=== PATIENT | male | born 1975 | race Caucasian/White ===

== ENCOUNTER 2023-06-11 10:32 | Observation (INO) | payer SELFPAY ==
[2023-06-11] VITALS (16 sets, daily range): BP systolic 102–188; BP diastolic 61–113; PULSE 51–103; RESP 16–18; TEMP 36.4–37.4; O2SAT 88–99; BMI 29.7
--- NOTE | 2023-06-11 10:41 | W.ED.ABDPA2 ---
HPI - Abdominal Pain General: Chief Complaint: Abdominal Pain Stated Complaint: abd pain, N/V Time Seen by Provider: 06/11/23 10:41 History of Present Illness: 47-year-old male presents to the emergency department with complaints of right lower and right upper quadrant abdominal pain. He states this occurred starting yesterday and got slightly better and then occurred again at 3:00 in the morning. He states he did have significant nausea and 9 out of 10 sharp pain in the to the right upper and right lower quadrant. He states he has felt chilled and that he thought he might of had a fever but he did not check it. He denies hematemesis or hematochezia. He states that pushing on the abdomen makes the pain worse and bending over makes the pain worse. He states that Nothing seems to make the pain better. Associated Symptoms: Reports chills, fever(s) and nausea Review of Systems General: Reports: 10 or more systems reviewed and unremarkable except in HPI and below Const: Reports: fever(s) and chills GI: Reports: abdominal pain and nausea Physical Exam Narrative: EXAM NARRATIVE: Constitutional: the patient appears well nourished and of normal development. Vital signs as documented. No acute distress at present. Alert and oriented-to person, place, time and situation. Head, eyes, ears, nose, mouth, throat: Normocephalic, atraumatic. Pupils-equal, round, reactive to light. No scleral icterus. Normal-appearing external ears. Normal appearing nasal turbinates, no drainage. No obvious oral lesions, posterior oropharynx without erythema or exudates. Neck: Supple, trachea is midline, no lymphadenopathy, no jugular venous distension, thyromegaly, or carotid bruits. Carotid upstrokes are brisk bilaterally. Lungs: clear to auscultation to all lung kessler. Symmetrical rise and fall of chest, no obvious signs of increased work of breathing at present. Cardiac: Regular rate and rhythm, positive S1, S2. No murmurs, rubs or gallops that I can appreciate Abdomen: Soft, Tender to palpation to the right lower and right upper quadrant, normal active bowel sounds to all quadrants. No palpable masses, no organomegaly and abdominal bruits. Extremities: 2+ pulses in the upper extremities that are equal bilaterally, 2+ pulses in the lower extremities that are equal bilaterally. Non-edematous. Moves all extremities well, sensation to all extremities are noted. Skin: Warm, dry, intact. Course Vital Signs: Vital signs: Vital Signs Temperature 98.5 F 06/14/23 11:42 Pulse Rate 85 06/14/23 11:42 Respiratory Rate 17 06/14/23 11:42 Blood Pressure 170/99 06/14/23 11:42 Pulse Oximetry 92 06/14/23 11:42 Oxygen Delivery Me thod Room Air 06/14/23 08:00 Oxygen Flow Rate 2 06/11/23 22:49 MDM - Abdominal Pain Medical Decision Making Physical exam completed and documented, laboratory examination to include a CBC, CMP, lipase as well as a CT scan of the abdomen pelvis I suspect he most likely has an acute appendicitis but the differential diagnosis does include gastroenteritis colitis, constipation excessive flatus, and cholecystitis. Lab Data I reviewed the patient's lab results. 06/14/23 04:46 06/14/23 04:46 Labs/Radiology: Laboratory Results WBC 13.95 10^3/uL (3.29-11.43) H 06/11/23 10:53 RBC 5.24 10^6/uL (3.85-5.65) 06/11/23 10:53 Hgb 16.10 g/dL (11.27-16.99) 06/11/23 10:53 Hct 45.8 % (37-53) 06/11/23 10:53 MCV 87.4 fl (82-101) 06/11/23 10:53 MCH 30.7 pg (27-33) 06/11/23 10:53 MCHC 35.2 g/dL (30-55) 06/11/23 10:53 RDW 12.3 % (12.1-15.1) 06/11/23 10:53 Plt Count 258 10^3/cmm (157-399) 06/11/23 10:53 MPV 10.1 fL (7.4-10.4) 06/11/23 10:53 Neut % (Auto) 84.7 % 06/11/23 10:53 Lymph % (Auto) 10.9 % 06/11/23 10:53 [place] % (Auto) 3.8 % 06/11/23 10:53 Eos % (Auto) 0.1 % 06/11/23 10:53 Baso % (Auto) 0.3 % 06/11/23 10:53 Neut # (Auto) 11.82 10^3/uL (1.8-7.7) H 06/11/23 10:53 Lymph # (Auto) 1.5 10^3/uL (0.8-4.8) 06/11/23 10:53 [place] # (Auto) 0.5 10^3/uL (0.2-0.9) 06/11/23 10:53 Eos # (Auto) 0.0 10^3/uL (0.0-0.8) 06/11/23 10:53 Baso # (Auto) 0.0 10^3/uL (0.0-0.1) 06/11/23 10:53 Nucleated RBC % (auto) 0 % 06/11/23 10:53 Nucleated RBCs # 0.0 /100WBC 06/11/23 10:53 Sodium 132 mmol/L (136-145) L 06/11/23 10:53 Potassium 3.7 mmol/L (3.5-5.1) 06/11/23 10:53 Chloride 97 mmol/L (98-107) L 06/11/23 10:53 Carbon Dioxide 22 mmol/L (22-29) 06/11/23 10:53 Anion Gap 16.7 (5-19) 06/11/23 10:53 BUN 8 mg/dL (6-20) 06/11/23 10:53 Creatinine 0.8 mg/dL (0.7-1.2) 06/11/23 10:53 GFR Calculation 104.5 mL/min (90-130) 06/11/23 10:53 Glucose 148 mg/dL (65-115) H 06/11/23 10:53 Calculated Osmolality 275 mOsm/kg (285-295) L 06/11/23 10:53 Calcium 9.8 mg/dL (8.5-10.5) 06/11/23 10:53 Total Bilirubin 0.5 mg/dL (0.15-1.2) 06/11/23 10:53 AST 25 U/L (0-40) 06/11/23 10:53 ALT 37 U/L (0-41) 06/11/23 10:53 Alkaline Phosphatase 79 U/L (40-130) 06/11/23 10:53 Troponin T Baseline 7 ng/L (0-15) 06/11/23 10:56 Troponin T 120 Minute 7.34 ng/L (0-15) 06/11/23 13:00 Delta Troponin T 0.34 ABS# (0-10) 06/11/23 13:00 Total Protein 7.6 g/dL (6.6-8.7) 06/11/23 10:53 Albumin 4.6 g/dL (3.5-5.2) 06/11/23 10:53 Globulin 3.0 g/dL (1.3-4.6) 06/11/23 10:53 Lipase 22 U/L (13-60) 06/11/23 10:53 Urine Color Yellow (Yellow) 06/11/23 11:31 Urine Appearance Clear (CLEAR) 06/11/23 11:31 Urine pH 9 (5-7) H 06/11/23 11:31 Ur Specific [place] 1.010 (1.005-1.030) 06/11/23 11:31 Urine Protein Neg (Negative) 06/11/23 11:31 Urine Glucose (UA) Norm (Normal) 06/11/23 11:31 Urine Ketones 1+ (Negative) H 06/11/23 11:31 Urine Blood Neg (Negative) 06/11/23 11:31 Urine Nitrate Negative (Negative) 06/11/23 11:31 Urine Bilirubin Neg (Negative) 06/11/23 11:31 Prot Sulfosalicylic Acd Negative (Negative) 06/11/23 11:31 Urine Urobilinogen Norm mg/dL (Negative) 06/11/23 11:31 Ur Leukocyte Esterase Negative (Negative) 06/11/23 11:31 Urine Opiates Screen Negative ng/mL (Negative) 06/11/23 11:31 Ur Barbiturates Screen Negative ng/mL (Negative) 06/11/23 11:31 Ur Phencyclidine Scrn Negative ng/mL (Negative) 06/11/23 11:31 Ur Amphetamines Screen Negative ng/mL (Negative) 06/11/23 11:31 U Benzodiazepines Scrn Negative ng/mL (Negative) 06/11/23 11:31 Urine Cocaine Screen Negative ng/mL (Negative) 06/11/23 11:31 U Marijuana (THC) Screen Negative ng/mL (Negative) 06/11/23 11:31 All radiology interpretation(s) finalized by discharge Discharge Plan Discharge Patient Disposition: Admitted As Inpatient Admit Provider: Tee Dinero Clinical Impression: Acute appendicitis, Abdominal pain Condition: Stable Discharge Orders: Discharge Order (Routine); Ordered 06/14/23 Ordered By: Tee Dinero Discharge Diet: Advance as tolerated Discharge Activity: Resume usual activity Coding Level of Care Code ED Clubhouse Manager for Negro Whyte
--- NOTE | 2023-06-11 10:42 | ECG_ITS ---
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 Measurements Intervals [place] Rate: 48 P: 13 IA: 136 QRS: 27 QRSD: 122 T: -25 QT: 446 QTc: 398 Interpretive Statements SINUS BRADYCARDIA NONSPECIFIC T-WAVE ABNORMALITY No previous ECG available for comparison Abnormal EKG Electronically Signed On 06-12-2023 13:20:29 DOT COMPLIANCE SPECIALIST by Alfred Wright M.D. [id number]
[2023-06-11] MEDS: ondansetron 2 mg/ML SDV 2 mL 4 MG IVP ×2 (10:57→22:54)
[2023-06-11 11:00] LABS: Basophils % 0.3 %; Eosinophils % 0.1 %; Hematocrit 45.8 % (37-53); Lymphocytes # 1.5 10^3/uL (0.8-4.8); Lymphocytes % 10.9 %; Mean Corpuscular HGB Conc 35.2 g/dL (30-55); Mean Corpuscular Hemoglobin 30.7 pg (27-33); Mean Corpuscular Volume 87.4 fl (82-101); Mean Platelet Volume 10.1 fL (7.4-10.4); Monocytes # 0.5 10^3/uL (0.2-0.9); Monocytes % 3.8 %; Neutrophils # 11.82 10^3/uL (1.8-7.7); Neutrophils % 84.7 %; Nucleated Red Blood Cells % 0 %; Platelet Count 258 10^3/cmm (157-399); Red Blood Count 5.24 10^6/uL (3.85-5.65); Red Cell Distribution Width 12.3 % (12.1-15.1); White Blood Count 13.95 10^3/uL (3.29-11.43)
--- NOTE | 2023-06-11 11:05 | PC.PHAR ---
PT STS HE ONLY TAKES LISINOPRIL 20MG DAILY- DID NOT ENTER IN HOME MEDICATIONS BECAUSE I WAS UNABLE TO VERIFY WHERE PT FILLED THE SCRIPT- CALLED [facility] IN [place] AND THEY SHOW LAST FILLED 2021 FOR LISINOPRIL 40MG DAILY
[2023-06-11 11:23] LABS: Alanine Aminotransferase 37 U/L (0-41); Albumin Level 4.6 g/dL (3.5-5.2); Alkaline Phosphatase 79 U/L (40-130); Anion Gap 16.7 (5-19); Aspartate Amino Transferase 25 U/L (0-40); Blood Urea Nitrogen 8 mg/dL (6-20); Calcium 9.8 mg/dL (8.5-10.5); Carbon Dioxide 22 mmol/L (22-29); Chloride 97 mmol/L (98-107); Glomerular Filtration Rate 104.5 mL/min (90-130); Glucose 148 mg/dL (65-115); Lipase 22 U/L (13-60); Osmolality Calculated 275 mOsm/kg (285-295); Potassium 3.7 mmol/L (3.5-5.1); Sodium 132 mmol/L (136-145); Total Bilirubin 0.5 mg/dL (0.15-1.2); Total Protein 7.6 g/dL (6.6-8.7)
[2023-06-11 11:43] LABS: Add Urine Microscopic? NO; Charge for UA Resulting for Rev
[2023-06-11] MEDS: lidocaine 2% viscous 15 ML, aluminum-mag hydrox-simethicon 30 ML, sucralfate oral liq 1 GM PO (11:50)
[2023-06-11 11:52] LABS: Amphetamines Screen Urine Negative (Negative); Barbiturates Screen Urine Negative (Negative); Benzodiazepines Screen Urine Negative (Negative); Cocaine Screen Urine Negative (Negative); Opiate Screen Urine Negative (Negative); PCP Screen Urine Negative (Negative); THC Screen Urine Negative (Negative)
[2023-06-11 12:03] LABS: Bilirubin Urine Neg (Negative); Blood Urine Neg (Negative); Glucose Urine UA Norm (Normal); Ketones Urine 1+ (Negative); Leukocyte Esterase Urine Negative (Negative); Nitrate Urine Negative (Negative); Protein Urine Neg (Negative); Sulfosalicylic Acid Urine Negative (Negative); Urine Appearance Clear (CLEAR); Urine Color Yellow (Yellow); Urobilinogen Urine Norm (Negative); pH Urine 9 (5-7)
--- NOTE | 2023-06-11 12:23 | CT_ITS ---
WS: [id number] CT ABDOMEN AND PELVIS WITH CONTRAST HISTORY: Abdominal pain TECHNIQUE: Imaging performed of the abdomen and pelvis with IV contrast. Single phase imaging of the abdomen. Coronal and sagittal reformats are submitted. All CT scans at [facility] use at [address] one of these dose optimization techniques: automated exposure control; mA and/or kV adjustment per patient size (includes targeted exams where dose is matched to clinical indication); or iterative re construction. IV CONTRAST: Omnipaque 350; 100 mL IV. Oral contrast: No DLP: 2218.73 mGy.cm COMPARISON: None available. Lower thorax: Benign granuloma at the lingula. No pneumonia. Heart is normal size. No hiatal hernia. Liver/biliary system: Diffuse hepatic steatosis. No mass. Gallbladder: Normal. No gallstones or wall thickening. No pericholecystic fluid. Pancreas: Normal size pancreas and pancreatic duct. No adjacent inflammation. Spleen: Normal size spleen. No mass or infarct. Adrenal glands: Normal. Right kidney: Normal. Left kidney: Normal. Aorta: Normal. Lymphadenopathy: None. Free fluid: None. GI tract: No obstruction. The appendix is dilated slightly measuring 9.8 mm. There is mild enhancemen t and very minimal inflammation surrounding the appendix. Abdominal wall: Unremarkable abdominal wall. No hernia. Pelvis: No free fluid or adenopathy within the pelvis. Normal size prostate with central calcificatio ns. Bones: Unremarkable. IMPRESSION: 1. Mildly dilated appendix with wall enhancement. No abscess or perforation. Findings are suspicious for acute mild appendicitis. 2. No GI tract obstruction or free air. 3. Hepatic steatosis.
[2023-06-11] MEDS: cloNIDine 0.1 mg Tablet PO (12:47)
[2023-06-11] MEDS: iohexol 350 mg/mL 500 mL Btl (per mL) IV (12:47)
[2023-06-11 12:50] LABS: Troponin(5th) Baseline 7 ng/L (0-15)
[2023-06-11 13:40] LABS: Troponin 5 2HR 7.34 ng/L (0-15); Troponin 5 2HR Delta 0.34 ABS# (0-10)
--- NOTE | 2023-06-11 14:18 | ECG_ITS ---
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 Measurements Intervals [place] Rate: 51 P: 45 SC: 175 QRS: 51 QRSD: 114 T: -18 QT: 442 QTc: 407 Interpretive Statements SINUS BRADYCARDIA WITH SINUS ARRHYTHMIA NONSPECIFIC T-WAVE ABNORMALITY Compared to ECG 06/11/2023 10:42:34 No significant changes Electronically Signed On 06-12-2023 13:33:57 RN HEMODIALYSIS by Alfred Wright M.D. [id number]
[2023-06-11] MEDS: hyDRALAzine 20 mg/mL INJ 1 mL 10 MG IVP (14:37)
[2023-06-11] MEDS: cefepime 2,000 MG in sodium chloride 0.9% (plus) 50 ML 100 MG IV (14:37)
[2023-06-11] MEDS: fentaNYL 50 mcg/mL INJ 2mL IVP (15:07)
--- NOTE | 2023-06-11 16:06 | P.HP_ITS ---
Providers/Chief Complaint Chief Complaint: abd pain, N/V History of Present Illness Escobar Yeh is a 47 year old male who presents to the hospital with a less than 1 day history of right lower quadrant abdominal pain nausea and emesis. He reports chills but denies any recorded fever. Denies any hematemesis. Denies any diarrhea, constipation, hematochezia and/or melena. Palpation makes pain worse. Not makes pain better. The pain does not radiate. CT the abdomen pelvis shows early acute appendicitis. Review of Systems General: Reports: 10 or more systems reviewed and unremarkable except in HPI and below Medications/Allergies Home Medications Medication Instructions Recorded Confirmed Last Taken Type No Known Home Medications 06/11/23 06/11/23 Unknown History Allergies Allergy/AdvReac Type Severity Reaction Status Date / Time No Known Allergies Allergy Verified 06/11/23 10:48 Vitals/I&O/Wt Last Vital Signs Temp 98.3 F 06/11/23 10:44 Pulse 63 06/11/23 15:51 Resp 16 06/11/23 15:51 BP 169/113 06/11/23 15:51 Pulse Ox 91 06/11/23 15:51 O2 Del Method Room Air 06/11/23 15:51 Weight last 48 hrs Weight 225 lb Physical Exam Narrative: General : Patient is well developed , no acute distress, oriented x3 Head : Normal cephalic, a-traumatic. Ears : Pinnae and external canal are normal. Hearing is normal. Eyes : PERRLA, Sclera and injection are normal. No conjunctival discharge. Nose : Mucous membranes are without erythema. Throat : buccal mucosa is normal, gums are without significant recession or hypertrophy. Lungs : Equal chest rise bilaterally, no use of accessory muscles, trachea is midline. Cor : Rate and rhythm are normal. Abdomen : Soft, ND, tender to palpation right lower quadrant, negative Rovsing' s, no g/r/m Extremities : No edema, no cyanosis or clubbing, dorsalis pedis pulses are present bilaterally, non-tender to palpation of calves. Upper extremities are normal bilaterally. Back : non-tender to palpation, no CVA tenderness. Neuro : CN II - XII intact, Upper and lower extremities have equal and full strength Data 06/11/23 10:53 06/11/23 10:53 A&P Assessment and plan (1) Acute appendicitis: Plan Laparoscopic Appendectomy The risks and benefits of the procedure, including but not limited to, bleeding, infection, scar, numbness, pain, damage to surrounding structures, conversion to an open procedure, were explained to the patient. He is understanding of the risks and wishes to proceed. Attestations Medical Necessity Statement*: Medical necessity will be determined intraoperatively Coding Level of Care Code 39478 Diagnoses Acute appendicitis K35.80
[2023-06-11] MEDS: metroNIDAZOLE IV 500 MG/100 ML PREMIX 100 MG IV (16:11)
--- NOTE | 2023-06-11 16:34 | ANES.PREANE2 ---
Pre-Anesthetic Assessment Height/Weight: Height 1.85 m Weight 102.058 kg Temp Pulse Resp BP Pulse Ox O2 Del Method 98.3 F 63 16 169/113 91 Room Air 06/11/23 10:44 06/11/23 15:51 06/11/23 15:51 06/11/23 15:51 06/11/23 15:51 06/11/23 15:51 Operation Date: 06/11/23 15:30 Proposed Procedures p Laparoscopic Appendectomy(Not Applicable) - Tee Dinero DO Familial anesthetic complications: none Was Beta Gabo taken within 24 hours: N/A Was Clonidine taken within 24 hours: N/A Social No alcohol and No tobacco Exam alert, oriented x 3, clear to auscultation bilaterally and regular rate & rhythm Airway Submandibular: within normal limits Cervical ROM: within normal limits Mallampati: Class II Dentition: chipped (multiple caries) CV/HEM Hypertension Metabolic Obese Anesthetic Plan ASA status: 2E Anesthesia: General (RSI) Medications/Allergies Home Medications Medication Instructions Recorded Confirmed Last Taken Type No Known Home Medications 06/11/23 06/11/23 Unknown History Allergies Allergy/AdvReac Type Severity Reaction Status Date / Time No Known Allergies Allergy Verified 06/11/23 10:48 Current Medications Generic Name Dose Route Start Last Admin Trade Name Freq PRN Reason Stop Dose Admin Metronidazole 500 mg in 100 mls @ 100 mls/hr 06/11/23 16:00 06/11/23 16:11 Flagyl Iv IV 06/11/23 16:59 100 mls/hr ONCE ONE Administration Data Anesthesia 06/11/23 10:53 06/11/23 10:53 Short CBC 06/11/23 Range/Units 10:53 WBC 13.95 H (3.29-11.43) 10^3/uL Hgb 16.10 (11.27-16.99) g/dL Hct 45.8 (37-53) % MCV 87.4 (82-101) fl Plt Count 258 (157-399) 10^3/cmm Neut % (Auto) 84.7 % Neut # (Auto) 11.82 H (1.8-7.7) 10^3/uL BMP 06/11/23 10:53 Sodium 132 L Potassium 3.7 Chloride 97 L Carbon Dioxide 22 BUN 8 Creatinine 0.8 Glucose 148 H Calcium 9.8 Cardiac Enzymes 06/11/23 06/11/23 Range/Units 10:56 13:00 Troponin T Baseline 7 (0-15) ng/L Troponin T 120 Minute 7.34 (0-15) ng/L Delta Troponin T 0.34 (0-10) ABS# Liver Function 06/11/23 Range/Units 10:53 Total Bilirubin 0.5 (0.15-1.2) mg/dL AST 25 (0-40) U/L ALT 37 (0-41) U/L Alkaline Phosphatase 79 (40-130) U/L Albumin 4.6 (3.5-5.2) g/dL Urine 06/11/23 Range/Units 11:31 Urine Color Yellow (Yellow) Urine Appearance Clear (CLEAR) Urine pH 9 H (5-7) Ur Specific [place] 1.010 (1.005-1.030) Urine Protein Neg (Negative) Urine Glucose (UA) Norm (Normal) Urine Ketones 1+ H (Negative) Urine Nitrate Negative (Negative) Urine Bilirubin Neg (Negative) Ur Leukocyte Esterase Negative (Negative) Cardiac Studies: No Data to Display
[2023-06-11] MEDS: lidocaine-epi 2% 20 mL INJ INJECTION (16:40)
--- NOTE | 2023-06-11 17:14 | P.OP_ITS ---
Operative Report Date of procedure: June 11, 2023 Pre-op diagnosis: Acute appendicitis Post-op diagnosis: same Procedure done: Laparoscopic appendectomy Implants: 19 Cymraes Bernardo drain Specimens removed/disposition: Appendix Surgeon: Tee Dinero DO Anesthesia: General Estimated blood loss (mL): 5 Complications: None apparent Brief History: This very pleasant 47-year-old gentleman who presented to the hospital with abdominal pain. He was diagnosed with acute appendicitis. Laparoscopic appendectomy was indicated. The risk benefits were explained and documented. Procedure: Patient was wheeled into the operative room and placed on the OR table in a sup ine position. Abdomen was inspected prepped and draped in usual sterile fashion. Time-out was performed and all present were in agreement. A 15 blade scalp was used to make a stab incision in the left upper quadrant and intra- abdominal insufflation was achieved using a Veress needle. After localizing the tissue incisions were made and a 12 millimeter trocar was placed into the umbilicus as well as a 5mm in the right lower quadrant and a 5 mm in the left lower quadrant . The appendix was identified and was mildly inflamed but extremely large and dilated. I used the LigaSure to ligate the mesoappendix at the base. I then used 2 PDS endo-loops to snare the base of the appendix. I then used the LigaSure to ligate the appendix distally. Unfortunately a significant amount of stool leaked out of the stool-filled appendix. The appendix was removed from the abdomen using an Endo-Catch bag through the umbilical incision. I spot irrigated and suctioned at the site of contamination. I examined the abdomen and no further pathology was identified. Hemostasis was noted. A 19 Cymraes Bernardo drain was placed through the right lower quadrant going to the pelvis and right paracolic gutter. Drain was sewn in place with 3-0 silk. I then closed the umbilical site with a Colby-Aidee and 0 Vicryl suture in a figure of 8 fashion. All ports removed. Skin was washed and dried. Incisions were closed with 3-0 nylon in a simple interrupted fashion. Sterile bandages were applied. Patient tolerated the procedure well.
--- NOTE | 2023-06-11 17:34 | ANE.PACU2 ---
Inpatient post-anesthesia follow up: Airway intact: Yes Vital signs: Temperature 98.2 F Pulse Rate 80 Respiratory Rate 16 Blood Pressure 102/65 Pulse Oximetry 98 Oxygen Delivery Me thod Simple Mask Oxygen Flow Rate 8 Fraction of Inspir ed Oxygen Hydration adequate: Yes Nausea and vomiting: No Pain level: 3 Mental status: Baseline
[2023-06-11] MEDS: pantoprazole 40 mg SDV IVP (18:53)
[2023-06-11] MEDS: heparin 5,000 unit/mL INJ 1 mL 5000 UNIT SUBCUT (18:54)
[2023-06-11] MEDS: ketorolac 30 mg/mL INJ IVP ×2 (18:56→22:50)
[2023-06-11] MEDS: dextrose 5%-sod chloride 0.45% 1,000 ML 125 ML IV (18:59)
[2023-06-11] MEDS: HYDROcodone-acetaminophen 7.5-325 mg Tablet 1 TAB PO (20:19)
[2023-06-11] MEDS: piperacillin-tazobactam 3.375 GM in sodium chloride 0.9% (plus) 50 ML IV (20:20)
[2023-06-12] VITALS (7 sets, daily range): BP systolic 120–157; BP diastolic 60–93; PULSE 78–96; RESP 16–20; TEMP 36.7–37; O2SAT 92–93
[2023-06-12] MEDS: HYDROcodone-acetaminophen 7.5-325 mg Tablet 1 TAB PO ×5 (00:24→21:47)
[2023-06-12] MEDS: dextrose 5%-sod chloride 0.45% 1,000 ML 125 ML IV ×2 (00:25→21:46)
[2023-06-12 03:07] LABS: Basophils % 0.2 %; Eosinophils % 0.1 %; Hematocrit 42.5 % (37-53); Lymphocytes % 4.7 %; Mean Corpuscular HGB Conc 34.6 g/dL (30-55); Mean Corpuscular Hemoglobin 30.8 pg (27-33); Mean Corpuscular Volume 89.1 fl (82-101); Mean Platelet Volume 10.4 fL (7.4-10.4); Monocytes # 1.4 10^3/uL (0.2-0.9); Monocytes % 6.2 %; Neutrophils # 19.13 10^3/uL (1.8-7.7); Neutrophils % 88.2 %; Nucleated Red Blood Cells % 0 %; Platelet Count 225 10^3/cmm (157-399); Red Blood Count 4.77 10^6/uL (3.85-5.65); Red Cell Distribution Width 12.8 % (12.1-15.1); White Blood Count 21.69 10^3/uL (3.29-11.43)
[2023-06-12 03:32] LABS: Anion Gap 16.1 (5-19); Blood Urea Nitrogen 13 mg/dL (6-20); Calcium 8.9 mg/dL (8.5-10.5); Carbon Dioxide 23 mmol/L (22-29); Chloride 99 mmol/L (98-107); Glomerular Filtration Rate 65.5 mL/min (90-130); Glucose 163 mg/dL (65-115); Magnesium 1.5 mg/dL (1.7-2.3); Osmolality Calculated 282 mOsm/kg (285-295); Potassium 4.1 mmol/L (3.5-5.1); Sodium 134 mmol/L (136-145)
[2023-06-12] MEDS: piperacillin-tazobactam 3.375 GM in sodium chloride 0.9% (plus) 50 ML IV ×3 (04:31→21:46)
[2023-06-12] MEDS: ketorolac 30 mg/mL INJ IVP ×4 (04:32→23:59)
[2023-06-12] MEDS: heparin 5,000 unit/mL INJ 1 mL 5000 UNIT SUBCUT ×2 (04:32→18:21)
[2023-06-12] MEDS: dextrose 5%-sod chloride 0.45% 1,000 ML 1125 ML IV (10:34)
--- NOTE | 2023-06-12 11:03 | P.PN_ITS ---
Subjective Subjective: Patient seen and examined. Pain controlled and tolerating diet. Vitals/I&O/Wt Last Vital Signs Temp 98.5 F 06/12/23 09:08 Pulse 80 06/12/23 09:08 Resp 20 H 06/12/23 09:08 BP 128/74 06/12/23 09:08 Pulse Ox 92 06/12/23 09:08 O2 Del Method Room Air 06/12/23 09:08 O2 Flow Rate 2 06/11/23 22:49 06/11/23 06/12/23 06/12/23 22:59 06:59 14:59 Intake Total 100 / 100 729.167 / 314.490 0400 / 1410 Output Total 245 / 245 760 / 1005 Balance -145 / -145 -30.833 / -944.460 7626 / 1410 Weight last 48 hrs Weight 255 lb 9.6 oz Weight 255 lb 9.6 oz Weight 225 lb Physical Exam Narrative: General: No acute distress, awake alert and oriented x 3 Abdomen: Soft, nondistended, appropriately tender Incisions intact without erythema or exudate Drain purulent Data 06/12/23 03:03 06/12/23 03:03 A&P Assessment and plan (1) Acute appendicitis: Plan Status post laparoscopic appendectomy WBCs are trending up and drain is purulent. I will keep him at least 1 more day for IV antibiotics Possible DC tomorrow Attestations Medical Necessity Statement*: Patient requires at least 1 more night in the hospital for IV antibiotics after ultrasound appendectomy for acute appendicitis Coding Level of Care Code Acute Code for [facility] Diagnoses Acute appendicitis K35.80
[2023-06-12] MEDS: magnesium sulfate premix 4 GM/100 ML PREMIX IV (12:26)
[2023-06-12] MEDS: pantoprazole 40 mg SDV IVP (18:09)
[2023-06-13] VITALS: BP 133/86; PULSE 85; RESP 17; TEMP 36.8; O2SAT 93
[2023-06-13] MEDS: HYDROcodone-acetaminophen 7.5-325 mg Tablet 1 TAB PO ×3 (05:36→21:13)
[2023-06-13 06:00] VITALS: BP 130/60; PULSE 76; RESP 18; TEMP 36.4; O2SAT 96; BMI 33.7
[2023-06-13] MEDS: ketorolac 30 mg/mL INJ IVP ×3 (06:40→17:34)
[2023-06-13] MEDS: piperacillin-tazobactam 3.375 GM in sodium chloride 0.9% (plus) 50 ML IV ×3 (06:40→21:15)
[2023-06-13] MEDS: heparin 5,000 unit/mL INJ 1 mL 5000 UNIT SUBCUT ×2 (06:41→17:34)
[2023-06-13 07:36] VITALS: BP 150/98; PULSE 93; RESP 18; TEMP 36.7; O2SAT 93
[2023-06-13] MEDS: dextrose 5%-sod chloride 0.45% 1,000 ML 125 ML IV ×2 (09:24→17:45)
[2023-06-13 10:02] LABS: Basophils % 0.2 %; Eosinophils % 0.2 %; Hematocrit 39.5 % (37-53); Lymphocytes % 8.4 %; Mean Corpuscular HGB Conc 33.7 g/dL (30-55); Mean Corpuscular Hemoglobin 30.6 pg (27-33); Mean Platelet Volume 10.1 fL (7.4-10.4); Monocytes % 7.8 %; Neutrophils # 10.16 10^3/uL (1.8-7.7); Neutrophils % 83.1 %; Nucleated Red Blood Cells % 0 %; Platelet Count 202 10^3/cmm (157-399); Red Blood Count 4.34 10^6/uL (3.85-5.65); Red Cell Distribution Width 13.2 % (12.1-15.1); White Blood Count 12.23 10^3/uL (3.29-11.43)
[2023-06-13 10:23] LABS: Blood Urea Nitrogen 14 mg/dL (6-20); Calcium 8.6 mg/dL (8.5-10.5); Carbon Dioxide 21 mmol/L (22-29); Chloride 104 mmol/L (98-107); Glomerular Filtration Rate 80.8 mL/min (90-130); Glucose 141 mg/dL (65-115); Magnesium 2.3 mg/dL (1.7-2.3); Osmolality Calculated 279 mOsm/kg (285-295); Sodium 133 mmol/L (136-145)
--- NOTE | 2023-06-13 12:16 | PM.PN ---
Subjective Subjective: Patient seen and examined. Pain controlled and tolerating diet. Still no BM Vitals/I&O/Wt Last Vital Signs Temp 98.0 F 06/13/23 07:36 Pulse 93 06/13/23 07:36 Resp 18 06/13/23 07:36 BP 150/98 06/13/23 07:36 Pulse Ox 93 06/13/23 07:36 O2 Del Method Room Air 06/13/23 07:36 O2 Flow Rate 2 06/11/23 22:49 06/12/23 06/13/23 06/13/23 22:59 06:59 14:59 Intake Total 1387.5 / 3450.0 1645.833 / 5095.833 170 / 170 Output Total 50 / 50 15 / 65 Balance 1337.5 / 3400.0 1630.833 / 5030.833 170 / 170 Weight last 48 hrs Weight 255 lb 9.6 oz Weight 255 lb 9.6 oz Weight 255 lb 9.6 oz Physical Exam Narrative: General: No acute distress, awake alert and oriented x 3 Abdomen: Soft, nondistended, appropriately tender Incisions intact without erythema or exudate Drain purulent Data 06/13/23 09:54 06/13/23 09:54 A&P Assessment and plan (1) Acute appendicitis: Plan Status post laparoscopic appendectomy WBCs remain elevated and and drain is purulent. I will keep him at least 1 more day for IV antibiotics Possible DC tomorrow Attestations Medical Necessity Statement*: Patient requires at least 1 more night in the hospital for IV antibiotics after laparoscopic appendectomy Coding Level of Care Code Acute Code for [facility] Diagnoses Acute appendicitis K35.80
[2023-06-13 12:17] VITALS: BP 154/88; PULSE 83; RESP 18; TEMP 36.6; O2SAT 93
[2023-06-13 15:33] VITALS: BP 160/97; PULSE 103; RESP 18; TEMP 36.8; O2SAT 92
[2023-06-13] MEDS: pantoprazole 40 mg SDV IVP (17:34)
[2023-06-13 20:00] VITALS: BP 151/94; PULSE 85; RESP 18; TEMP 36.8; O2SAT 93
[2023-06-14] VITALS: BP 152/90; PULSE 85; RESP 16; TEMP 37.2; O2SAT 94
[2023-06-14] MEDS: ketorolac 30 mg/mL INJ IVP ×2 (00:16→05:51)
[2023-06-14] MEDS: dextrose 5%-sod chloride 0.45% 1,000 ML 125 ML IV (01:49)
[2023-06-14 04:12] VITALS: BP 161/98; PULSE 85; RESP 16; TEMP 37.1; O2SAT 95
[2023-06-14] MEDS: HYDROcodone-acetaminophen 7.5-325 mg Tablet 1 TAB PO ×2 (04:18→11:23)
[2023-06-14] MEDS: piperacillin-tazobactam 3.375 GM in sodium chloride 0.9% (plus) 50 ML IV (04:19)
[2023-06-14 05:03] LABS: Basophils # 0.1 10^3/uL (0.0-0.1); Basophils % 0.5 %; Eosinophils # 0.1 10^3/uL (0.0-0.8); Eosinophils % 0.8 %; Hematocrit 41.9 % (37-53); Lymphocytes # 1.5 10^3/uL (0.8-4.8); Lymphocytes % 13.3 %; Mean Corpuscular HGB Conc 33.2 g/dL (30-55); Mean Corpuscular Hemoglobin 30.5 pg (27-33); Mean Corpuscular Volume 92.1 fl (82-101); Mean Platelet Volume 10.5 fL (7.4-10.4); Neutrophils # 8.61 10^3/uL (1.8-7.7); Nucleated Red Blood Cells % 0 %; Platelet Count 218 10^3/cmm (157-399); Red Blood Count 4.55 10^6/uL (3.85-5.65); Red Cell Distribution Width 13.2 % (12.1-15.1); White Blood Count 11.32 10^3/uL (3.29-11.43)
[2023-06-14 05:22] LABS: Anion Gap 13.8 (5-19); Blood Urea Nitrogen 10 mg/dL (6-20); Calcium 9.1 mg/dL (8.5-10.5); Carbon Dioxide 24 mmol/L (22-29); Chloride 102 mmol/L (98-107); Glomerular Filtration Rate 91.3 mL/min (90-130); Glucose 108 mg/dL (65-115); Magnesium 2.1 mg/dL (1.7-2.3); Osmolality Calculated 282 mOsm/kg (285-295); Potassium 3.8 mmol/L (3.5-5.1); Sodium 136 mmol/L (136-145)
[2023-06-14] MEDS: heparin 5,000 unit/mL INJ 1 mL 5000 UNIT SUBCUT (05:51)
[2023-06-14 08:00] VITALS: BP 170/99; PULSE 85; RESP 17; TEMP 36.9; O2SAT 92
--- NOTE | 2023-06-14 08:27 | P.DS_ITS ---
Discharge Providers Date of Admission: 06/11/23 17:32 Date of Discharge: June 14, 2023 Attending Provider at Admission: Tee Dinero DO Attending Provider at Discharge: Tee Dinero DO Diagnoses at Discharge Discharge Diagnosis (1) Acute appendicitis: Status: Acute Reason for Visit Reason for Visit: abd pain, N/V Hospital Course Hospital Course This a very pleasant 47-year-old gentleman who went laparoscopic appendectomy presented to the hospital with abdominal pain and was diagnosed with acute appendicitis. He. The small amount of stool spillage due to a very large diameter appendix that had to be transected. He stayed 2 days for IV antibiotics with a drain in place before being discharged home in good condition. Physical Exam Narrative: General : Patient is well developed , no acute distress, oriented x3 Head : Normal cephalic, a-traumatic. Ears : Pinnae and external canal are normal. Hearing is normal. Eyes : PERRLA, Sclera and injection are normal. No conjunctival discharge. Nose : Mucous membranes are without erythema. Throat : buccal mucosa is normal, gums are without significant recession or hypertrophy. Lungs : Equal chest rise bilaterally, no use of accessory muscles, trachea is midline. Cor : Rate and rhythm are normal. Abdomen : Soft, ND, appropriately tender, no g/r/m Drain serosanguineous Incisions intact without erythema or exudate Extremities : No edema, no cyanosis or clubbing, dorsalis pedis pulses are present bilaterally, non-tender to palpation of calves. Upper extremities are normal bilaterally. Back : non-tender to palpation, no CVA tenderness. Neuro : CN II - XII intact, Upper and lower extremities have equal and full strength Discharge Data Studies Completed and Pending Completed Studies During Hospitalization Category Date Time Status CT abdomen pelvis w con* [id number] Stat Cat Scan 06/11/23 12:23 Completed Pending at discharge Category Date Time Status Pathology: Surgical [PTH] Routine Pth 06/11/23 17:06 Ordered Laboratory Results WBC 11.32 10^3/uL (3.29-11.43) 06/14/23 04:46 RBC 4.55 10^6/uL (3.85-5.65) 06/14/23 04:46 Hgb 13.90 g/dL (11.27-16.99) 06/14/23 04:46 Hct 41.9 % (37-53) 06/14/23 04:46 MCV 92.1 fl (82-101) 06/14/23 04:46 MCH 30.5 pg (27-33) 06/14/23 04:46 MCHC 33.2 g/dL (30-55) 06/14/23 04:46 RDW 13.2 % (12.1-15.1) 06/14/23 04:46 Plt Count 218 10^3/cmm (157-399) 06/14/23 04:46 MPV 10.5 fL (7.4-10.4) H 06/14/23 04:46 Neut % (Auto) 76.0 % 06/14/23 04:46 Lymph % (Auto) 13.3 % 06/14/23 04:46 [place] % (Auto) 9.0 % 06/14/23 04:46 Eos % (Auto) 0.8 % 06/14/23 04:46 Baso % (Auto) 0.5 % 06/14/23 04:46 Neut # (Auto) 8.61 10^3/uL (1.8-7.7) H 06/14/23 04:46 Lymph # (Auto) 1.5 10^3/uL (0.8-4.8) 06/14/23 04:46 [place] # (Auto) 1.0 10^3/uL (0.2-0.9) H 06/14/23 04:46 Eos # (Auto) 0.1 10^3/uL (0.0-0.8) 06/14/23 04:46 Baso # (Auto) 0.1 10^3/uL (0.0-0.1) 06/14/23 04:46 Nucleated RBC % (auto) 0 % 06/14/23 04:46 Nucleated RBCs # 0.0 /100WBC 06/14/23 04:46 Sodium 136 mmol/L (136-145) 06/14/23 04:46 Potassium 3.8 mmol/L (3.5-5.1) 06/14/23 04:46 Chloride 102 mmol/L (98-107) 06/14/23 04:46 Carbon Dioxide 24 mmol/L (22-29) 06/14/23 04:46 Anion Gap 13.8 (5-19) 06/14/23 04:46 BUN 10 mg/dL (6-20) 06/14/23 04:46 Creatinine 0.9 mg/dL (0.7-1.2) 06/14/23 04:46 GFR Calculation 91.3 mL/min (90-130) 06/14/23 04:46 Glucose 108 mg/dL (65-115) 06/14/23 04:46 Calculated Osmolality 282 mOsm/kg (285-295) L 06/14/23 04:46 Calcium 9.1 mg/dL (8.5-10.5) 06/14/23 04:46 Magnesium 2.1 mg/dL (1.7-2.3) 06/14/23 04:46 Total Bilirubin 0.5 mg/dL (0.15-1.2) 06/11/23 10:53 AST 25 U/L (0-40) 06/11/23 10:53 ALT 37 U/L (0-41) 06/11/23 10:53 Alkaline Phosphatase 79 U/L (40-130) 06/11/23 10:53 Troponin T Baseline 7 ng/L (0-15) 06/11/23 10:56 Troponin T 120 Minute 7.34 ng/L (0-15) 06/11/23 13:00 Delta Troponin T 0.34 ABS# (0-10) 06/11/23 13:00 Total Protein 7.6 g/dL (6.6-8.7) 06/11/23 10:53 Albumin 4.6 g/dL (3.5-5.2) 06/11/23 10:53 Globulin 3.0 g/dL (1.3-4.6) 06/11/23 10:53 Lipase 22 U/L (13-60) 06/11/23 10:53 Urine Color Yellow (Yellow) 06/11/23 11:31 Urine Appearance Clear (CLEAR) 06/11/23 11:31 Urine pH 9 (5-7) H 06/11/23 11:31 Ur Specific [place] 1.010 (1.005-1.030) 06/11/23 11:31 Urine Protein Neg (Negative) 06/11/23 11:31 Urine Glucose (UA) Norm (Normal) 06/11/23 11:31 Urine Ketones 1+ (Negative) H 06/11/23 11:31 Urine Blood Neg (Negative) 06/11/23 11:31 Urine Nitrate Negative (Negative) 06/11/23 11:31 Urine Bilirubin Neg (Negative) 06/11/23 11:31 Prot Sulfosalicylic Acd Negative (Negative) 06/11/23 11:31 Urine Urobilinogen Norm mg/dL (Negative) 06/11/23 11:31 Ur Leukocyte Esterase Negative (Negative) 06/11/23 11:31 Urine Opiates Screen Negative ng/mL (Negative) 06/11/23 11:31 Ur Barbiturates Screen Negative ng/mL (Negative) 06/11/23 11:31 Ur Phencyclidine Scrn Negative ng/mL (Negative) 06/11/23 11:31 Ur Amphetamines Screen Negative ng/mL (Negative) 06/11/23 11:31 U Benzodiazepines Scrn Negative ng/mL (Negative) 06/11/23 11:31 Urine Cocaine Screen Negative ng/mL (Negative) 06/11/23 11:31 U Marijuana (THC) Screen Negative ng/mL (Negative) 06/11/23 11:31 Procedures Performed Laparoscopic appendectomy Vitals Last Vital Signs Temp 98.5 F 06/14/23 08:00 Pulse 85 06/14/23 08:00 Resp 17 06/14/23 08:00 BP 170/99 06/14/23 08:00 Pulse Ox 92 06/14/23 08:00 O2 Del Method Room Air 06/14/23 08:00 O2 Flow Rate 2 06/11/23 22:49 Discharge Plan Discharge Patient Disposition: Home Condition: Stable Prescriptions: New hydrocodone-acetaminophen 10-325 mg tablet 1 tab PO Q6H PRN (Reason: pain) Qty: 20 0RF Colace 100 mg capsule 100 mg PO BID Qty: 14 0RF amoxicillin-pot clavulanate 875-125 mg tablet 1 tab PO BID Qty: 24 0RF Continued lisinopril 20 mg Tablet See Rx Instructions .ROUTE .COMPLEX Rx Instructions: unknown dose (patient and stating either 40 mg or 20 mg) patient takes daily Discharge Orders: Discharge Order (Routine); Ordered 06/14/23 Ordered By: Tee Dinero Referrals: Tee Dinero DO [Physician] - 2 weeks Discharge Diet: Advance as tolerated Discharge Activity: Resume usual activity Patient Instructions: Opioid Safety Activity Restrictions/Additional Instructions: Do not soak incisions underwater for 2 weeks. Keep bandage on over drain site for 2 days and then remove. Otherwise shower daily Discharge Attestations Time Spent in Discharge Care*: less than 30 min Quality Metrics Clinical Quality Measures [ No reported AMI, CVA or VTE this stay] Coding Level of Care Code Acute Code for [facility] Fwd Diagnoses Acute appendicitis K35.80
[2023-06-14 11:42] VITALS: BP 170/99; PULSE 85; RESP 17; TEMP 36.9; O2SAT 92
--- NOTE | 2023-06-14 11:42 | PC.NURSE ---
MANUEL drained removed without issue. Covered with 2x2 gauze and secured. No drainage noted.
== END 2023-06-14 11:44 | disposition home or self-care (01) ==
LOC: ER 11:54 → OR 15:41 → MEDSURG 17:33
PROVIDERS: Admitting Provider Surgery; Emergency Provider Internal Medicine; Visit Provider Surgery
PROC: 0DTJ4ZZ Resection of Appendix, Percutaneous Endoscopic Approach (ICD-10-PCS; CPT 44970; principal; 2023-06-11 15:30)
DX: K35.80 Unspecified acute appendicitis (principal); I10 Essential (primary) hypertension; E66.9 Obesity, unspecified; Z68.34 Body mass index [BMI] 34.0-34.9, adult
CPT/HCPCS: 44970; 36415; 74177; 80048; 80053; 80306; 81003; 83690; 83735; 84484; 85025; 88304; 93005; 93010; 96372; 96374; 96375; 99285; C9113; G0378; J0330; J0360; J0692; J1100; J1644; J1885; J2371; J2405; J2543; J2704; J2710; J3010; J3475; J3490; J7799; Q9967

== ENCOUNTER 2023-06-24 15:47 | Emergency (ER) | payer SELFPAY ==
[2023-06-24 16:09] VITALS: BP 127/83; PULSE 80; RESP 16; TEMP 36.7; O2SAT 96; BMI 30.8
[2023-06-24 16:54] LABS: Basophils # 0.1 10^3/uL (0.0-0.1); Basophils % 0.5 %; Eosinophils # 0.1 10^3/uL (0.0-0.8); Eosinophils % 0.4 %; Lymphocytes # 1.8 10^3/uL (0.8-4.8); Lymphocytes % 12.4 %; Mean Corpuscular HGB Conc 33.6 g/dL (30-55); Mean Corpuscular Hemoglobin 30.4 pg (27-33); Mean Corpuscular Volume 90.3 fl (82-101); Mean Platelet Volume 9.6 fL (7.4-10.4); Monocytes # 0.7 10^3/uL (0.2-0.9); Monocytes % 5.1 %; Neutrophils # 11.58 10^3/uL (1.8-7.7); Neutrophils % 81.3 %; Nucleated Red Blood Cells % 0 %; Platelet Count 379 10^3/cmm (157-399); Red Blood Count 4.87 10^6/uL (3.85-5.65); Red Cell Distribution Width 12.4 % (12.1-15.1); White Blood Count 14.24 10^3/uL (3.29-11.43)
--- NOTE | 2023-06-24 17:19 | XRR_ITS ---
PROCEDURE INFORMATION: Exam: XR Chest Exam date and time: 06/24/2023 5:30 PM Age: 47 years old Clinical indication: Pain; Chest pressure and right-sided; Prior surgery; Surgery date: <1 month; Surgery type: Appy; Additional info: Pain, ruq pain S/P lap appy, wbc 14+, R/O hcap TECHNIQUE: Imaging protocol: Radiologic exam of the chest. Views: 1 view. COMPARISON: CT abdomen pelvis w con* [id number] 06/11/2023 12:34 PM FINDINGS: Lungs: Unremarkable. No consolidation. Pleural spaces: Unremarkable. No pleural effusion. No pneumothorax. Heart/Mediastinum: Unremarkable. No cardiomegaly. Bones/joints: Unremarkable. XR/XR chest 1V [id number] IMPRESSION: No acute findings.
[2023-06-24 17:31] LABS: Alanine Aminotransferase 29 U/L (0-41); Albumin Level 4.2 g/dL (3.5-5.2); Alkaline Phosphatase 87 U/L (40-130); Anion Gap 17.9 (5-19); Aspartate Amino Transferase 18 U/L (0-40); Blood Urea Nitrogen 9 mg/dL (6-20); Calcium 9.8 mg/dL (8.5-10.5); Carbon Dioxide 21 mmol/L (22-29); Chloride 101 mmol/L (98-107); Globulin 3.7 g/dL (1.3-4.6); Glomerular Filtration Rate 104.5 mL/min (90-130); Glucose 110 mg/dL (65-115); Lipase 18 U/L (13-60); Osmolality Calculated 281 mOsm/kg (285-295); Potassium 3.9 mmol/L (3.5-5.1); Sodium 136 mmol/L (136-145); Total Bilirubin 0.4 mg/dL (0.15-1.2); Total Protein 7.9 g/dL (6.6-8.7)
--- NOTE | 2023-06-24 17:37 | ECG_ITS ---
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 Measurements Intervals [place] Rate: 76 P: 51 KS: 173 QRS: 22 QRSD: 106 T: 21 QT: 400 QTc: 450 Interpretive Statements SINUS RHYTHM Compared to ECG 06/11/2023 14:07:50 Sinus bradycardia no longer present Sinus arrhythmia no longer present T-wave abnormality no longer present Electronically Signed On 06-24-2023 22:13:54 DIRECTOR UTILIZATION MANAGEMENT by Jessica Dia M.D. [id number]
[2023-06-24 17:40] VITALS: BP 126/87; PULSE 83; O2SAT 97
--- NOTE | 2023-06-24 17:42 | ED_ITS ---
HPI - Abdominal Pain 2 General: Chief Complaint: Abdominal Pain Stated Complaint: right side pain,previous appendectomy Time Seen by Provider: 06/24/23 16:42 Source: patient Mode of arrival: ambulatory Limitations: no limitations History of Present Illness: 47-year-old male states that he has been having right-sided lower chest pain over the last 2 days. He states it is very sharp in nature he states its improved with rest much worse with deep breaths and or palpation. He did have a recent appendectomy he denies any pain in his abdomen states mainly right lower chest he had no vomiting no diarrhea denies any cough or fever. Associated Symptoms: Denies chills, diarrhea, dysuria, fever(s), nausea and vomiting Review of Systems 2 Const: Denies: fever(s), chills, body aches or change in appetite ENMT: Denies: throat pain or dental pain Card: Reports: chest pain Resp: Denies: dyspnea GI: Denies: abdominal pain, nausea, vomiting or diarrhea : Denies: dysuria or urinary dribbling Musc: Denies: neck pain or back pain Skin/Breast: Denies: rash Neuro: Denies: headache(s) PFSH ED 2 PFSH: Surgical History S/P laparoscopic appendectomy Physical Exam 2 Const: COMMON NORMALS: no acute distress, patient oriented x3 and healthy appearing HENMT: COMMON NORMALS: normocephalic and atraumatic HEAD & SCALP: n ormocephalic and atraumatic Neck/C-Spine: COMMON NORMALS: full ROM and supple Chest: COMMONS NORMALS: normal inspection of the chest; negative for normal palpation of entire chest wall (Point tender over right lower ribs reproduces his pain) Resp: COMMON NORMALS: normal respiratory effort, No retractions, No use of accessory muscles and clear to auscultation bilaterally AUSCULTATION: clear to auscultation bilaterally Cardio: COMMON NORMALS: regular rate, regular rhythm and No murmurs present (Cardio) RATE: regular rate RHYTHM: regular rhythm GI: COMMON NORMALS: Normal to inspection, nondistended, normoactive bowel sounds present, Soft to palpation, non-tender and no masses PALPATION: Yes Soft to palpation Extremity: COMMON NORMALS: normal to inspection and full ROM Neuro: COMMON NORMALS: patient oriented x3, moves all extremities and no focal motor deficits Psych: COMMON NORMALS: mental status grossly normal, Normal thought process present and cooperative THOUGHT PROCESS: Normal thought process present Skin: COMMON NORMALS: no rashes or lesions noted and no wounds GENERAL SKIN EXAM: no rashes or lesions noted Course 2 Vital Signs: Vital signs: Vital Signs Temperature 98.0 F 06/24/23 16:09 Pulse Rate 75 06/24/23 18:32 Respiratory Rate 16 06/24/23 16:09 Blood Pressure 134/90 06/24/23 18:32 Pulse Oximetry 96 06/24/23 18:32 Oxygen Delivery Me thod Room Air 06/24/23 17:50 MDM - Abdominal Pain Medical Decision Making Patient presents here with right-sided chest wall pain he is point tender in his right lower ribs likely a muscle strain or costochondritis he has no abdominal tenderness here no signs of acute abdomen we will place him on pain meds Naprosyn he is to follow-up with PCP if his pain worsens or he develops fever he is return he understands agrees to plan. Medical Records I reviewed the patient's medical records. Lab Data I reviewed the patient's lab results. 06/24/23 16:37 06/24/23 16:37 Labs/Radiology: Radiology Impressions Chest X-Ray 06/24/23 17:19 IMPRESSION: No acute findings. Laboratory Results WBC 14.24 10^3/uL (3.29-11.43) H 06/24/23 16:37 RBC 4.87 10^6/uL (3.85-5.65) 06/24/23 16:37 Hgb 14.80 g/dL (11.27-16.99) 06/24/23 16:37 Hct 44.0 % (37-53) 06/24/23 16:37 MCV 90.3 fl (82-101) 06/24/23 16:37 MCH 30.4 pg (27-33) 06/24/23 16:37 MCHC 33.6 g/dL (30-55) 06/24/23 16:37 RDW 12.4 % (12.1-15.1) 06/24/23 16:37 Plt Count 379 10^3/cmm (157-399) 06/24/23 16:37 MPV 9.6 fL (7.4-10.4) 06/24/23 16:37 Neut % (Auto) 81.3 % 06/24/23 16:37 Lymph % (Auto) 12.4 % 06/24/23 16:37 [place] % (Auto) 5.1 % 06/24/23 16:37 Eos % (Auto) 0.4 % 06/24/23 16:37 Baso % (Auto) 0.5 % 06/24/23 16:37 Neut # (Auto) 11.58 10^3/uL (1.8-7.7) H 06/24/23 16:37 Lymph # (Auto) 1.8 10^3/uL (0.8-4.8) 06/24/23 16:37 [place] # (Auto) 0.7 10^3/uL (0.2-0.9) 06/24/23 16:37 Eos # (Auto) 0.1 10^3/uL (0.0-0.8) 06/24/23 16:37 Baso # (Auto) 0.1 10^3/uL (0.0-0.1) 06/24/23 16:37 Nucleated RBC % (auto) 0 % 06/24/23 16:37 Nucleated RBCs # 0.0 /100WBC 06/24/23 16:37 Sodium 136 mmol/L (136-145) 06/24/23 16:37 Potassium 3.9 mmol/L (3.5-5.1) 06/24/23 16:37 Chloride 101 mmol/L (98-107) 06/24/23 16:37 Carbon Dioxide 21 mmol/L (22-29) L 06/24/23 16:37 Anion Gap 17.9 (5-19) 06/24/23 16:37 BUN 9 mg/dL (6-20) 06/24/23 16:37 Creatinine 0.8 mg/dL (0.7-1.2) 06/24/23 16:37 GFR Calculation 104.5 mL/min (90-130) 06/24/23 16:37 Glucose 110 mg/dL (65-115) 06/24/23 16:37 Calculated Osmolality 281 mOsm/kg (285-295) L 06/24/23 16:37 Calcium 9.8 mg/dL (8.5-10.5) 06/24/23 16:37 Total Bilirubin 0.4 mg/dL (0.15-1.2) 06/24/23 16:37 AST 18 U/L (0-40) 06/24/23 16:37 ALT 29 U/L (0-41) 06/24/23 16:37 Alkaline Phosphatase 87 U/L (40-130) 06/24/23 16:37 Total Protein 7.9 g/dL (6.6-8.7) 06/24/23 16:37 Albumin 4.2 g/dL (3.5-5.2) 06/24/23 16:37 Globulin 3.7 g/dL (1.3-4.6) 06/24/23 16:37 Lipase 18 U/L (13-60) 06/24/23 16:37 All radiology interpretation(s) finalized by discharge EKG Data EKG 1: I personally reviewed and interpreted this EKG as follows: EKG interpretation date: 06/24/23 EKG interpretation time: 17:40 Interpretation: nsr hr [address] or t wave abnormalities qrs 106 qtc 430 Discharge Plan Discharge Patient Disposition: Home Clinical Impression: Chest wall pain Condition: Stable Prescriptions: New hydrocodone-acetaminophen 5-325 mg tablet 1 tab PO Q6H PRN (Reason: pain) Qty: 14 0RF Naprosyn 500 mg tablet 500 mg PO BID PRN (Reason: pain) Qty: 20 0RF No Action hydrocodone-acetaminophen 10-325 mg tablet 1 tab PO Q6H PRN (Reason: pain) 5 Days Qty: 20 0RF lisinopril 20 mg Tablet See Rx Instructions .ROUTE .COMPLEX Rx Instructions: unknown dose (patient and stating either 40 mg or 20 mg) patient takes daily hydrocodone-acetaminophen 10-325 mg tablet 1 tab PO Q6H PRN (Reason: pain) Qty: 20 0RF Colace 100 mg capsule 100 mg PO BID Qty: 14 0RF amoxicillin-pot clavulanate 875-125 mg tablet 1 tab PO BID Qty: 24 0RF Discharge Orders: Discharge ED (Routine); Ordered 06/24/23 Ordered By: Scotty Hill Discharge Diet: Advance as tolerated Discharge Activity: Resume usual activity Patient Instructions: Costochondritis (ED), Chest Wall Pain (ED) Coding Level of Care Code [facility] Shift Lead for [facility] [place]
[2023-06-24] MEDS: HYDROcodone-acetaminophen 7.5-325 mg Tablet 1 TAB PO (17:48)
[2023-06-24 17:50] VITALS: BP 137/93; PULSE 76; O2SAT 97
[2023-06-24 18:32] VITALS: BP 134/90; PULSE 75; O2SAT 96
== END 2023-06-24 18:34 | disposition home or self-care (01) ==
PROVIDERS: Emergency Provider Emergency Medicine
DX: R07.89 Other chest pain (principal)
CPT/HCPCS: 36415; 71045; 80053; 83690; 85025; 93005; 99285